=== PATIENT | female | born 1950 | race Caucasian/White ===

== ENCOUNTER 2016-09-20 08:07 | Day surgery (SDC) | payer MEDICARE, OTHER ==
[~2016-09-20] VITALS: Ht 160 cm; Wt 81.2 kg
[2016-09-20] MEDS ORDERED: LEFLUNOMIDE10 MG PO (09:23)
[2016-09-20] MEDS ORDERED: PREDNISONE5 MG PO (09:24)
[2016-09-20] MEDS ORDERED: CETIRIZINE HCL10 M1 PO (09:25)
[2016-09-20] MEDS ORDERED: LEVOTHYROXINE75 MCG PO (09:25)
[2016-09-20] MEDS ORDERED: TRAZODONE HCL50 MG PO (09:26)
[2016-09-20] MEDS ORDERED: PAROXETINE HCL30 MG PO (09:26)
[2016-09-20] MEDS ORDERED: ALLOPURINOL100 MG PO (09:26)
[2016-09-20] MEDS ORDERED: OMEPRAZOLE20 MG PO (09:27)
[2016-09-20] MEDS ORDERED: MULTIVITAMINS1 EAC1 PO (09:27)
[2016-09-20] MEDS ORDERED: VITAMIN B-121000 MCG PO (09:28)
[2016-09-20] MEDS ORDERED: VITAMIN C 500500 MG PO (09:28)
[2016-09-20] MEDS ORDERED: CALCIUM + VITA1 EACH PO (09:30)
[2016-09-20] MEDS ORDERED: NORCO 5-325 TA1 EACH PO (09:31)
[2016-09-22 06:07] LABS: HEMOGLOBIN 12.6 gm/dl (12.3-15.3); WHITE BLOOD COUNT 4.1 K/UL (4.5-11.0)
[2016-09-22 06:40] LABS: BUN/CREATININE RATIO 12 (0-10)
[2016-09-22] MEDS ORDERED: ZOFRAN 4 MG TAB4 MG PO (11:20)
[2016-09-22] MEDS ORDERED: PERCOCET 10-321 EACH PO (11:21)
[2016-09-22] MEDS ORDERED: ASPIRIN325 MG PO (11:21)
[2016-09-22] MEDS ORDERED: CLINDAMYCIN HC300 MG PO (11:22)
[2016-09-22] MEDS ORDERED: MS CONTIN15 MG PO (11:23)
== END 2016-09-22 17:54 | disposition home or self-care (01) ==
LOC: OR 08:07 → M/S 18:04 → OR 09-22 17:54
PROVIDERS: Emergency Medicine; Podiatrist Foot & Ankle Surgery
PROC: 0JBR0ZZ Excision of Left Foot Subcutaneous Tissue and Fascia, Open Approach (ICD-10-PCS; 2016-09-20)
PROC: 0HXNXZZ Transfer Left Foot Skin, External Approach (ICD-10-PCS; 2016-09-20)
PROC: 0L8W0ZZ Division of Left Foot Tendon, Open Approach (ICD-10-PCS; principal; 2016-09-20 15:00)
PROC: 0QBM0ZZ Excision of Left Tarsal, Open Approach (ICD-10-PCS; 2016-09-20 15:00)
DX: M20.42 Other hammer toe(s) (acquired), left foot (principal); M62.472 Contracture of muscle, left ankle and foot; L57.0 Actinic keratosis; S93.332A Other subluxation of left foot, initial encounter; M19.072 Primary osteoarthritis, left ankle and foot; J45.909 Unspecified asthma, uncomplicated; J44.9 Chronic obstructive pulmonary disease, unspecified; K21.9 Gastro-esophageal reflux disease without esophagitis; M81.0 Age-related osteoporosis without current pathological fracture; G47.00 Insomnia, unspecified; G89.29 Other chronic pain; M19.90 Unspecified osteoarthritis, unspecified site; M54.9 Dorsalgia, unspecified; M06.9 Rheumatoid arthritis, unspecified; M10.9 Gout, unspecified; F41.9 Anxiety disorder, unspecified; F32.9 Major depressive disorder, single episode, unspecified; Z82.49 Family history of ischemic heart disease and other diseases of the circulatory system; Z83.3 Family history of diabetes mellitus; Z88.2 Allergy status to sulfonamides; Z88.8 Allergy status to other drugs, medicaments and biological substances; Z79.899 Other long term (current) drug therapy; Z90.89 Acquired absence of other organs; Z98.890 Other specified postprocedural states
CPT/HCPCS: 36415; 71020; 73090; 73110; 73200; 73502; 73552; 80048; 85027; 93005; 97116; 97530; J1200; J1650; J2250; J2270; J2405; J2795; J3010; J3370; J7120

== ENCOUNTER → 2016-10-09 | Outpatient (CLI) | payer MEDICARE, OTHER ==
[~2016-10-09] MED LIST: ALLOPURINOL100 MG PO; ASPIRIN325 MG PO; CALCIUM + VITA1 EACH PO; CETIRIZINE HCL10 M1 PO; CLINDAMYCIN HC300 MG PO; LEFLUNOMIDE10 MG PO; LEVOTHYROXINE75 MCG PO; MS CONTIN15 MG PO; MULTIVITAMINS1 EAC1 PO; NORCO 5-325 TA1 EACH PO; OMEPRAZOLE20 MG PO; PAROXETINE HCL30 MG PO; PERCOCET 10-321 EACH PO; PREDNISONE5 MG PO; TRAZODONE HCL50 MG PO; VITAMIN B-121000 MCG PO; VITAMIN C 500500 MG PO; ZOFRAN 4 MG TAB4 MG PO
== END ==
LOC: HEART CORB 13:43
DX: I38 Endocarditis, valve unspecified (principal)
CPT/HCPCS: 93306